=== PATIENT | female | born 1955 | race Caucasian/White ===

== ENCOUNTER → 2018-06-26 | Outpatient (CLI) | payer BC | LOC: MC.RAD 11:00 | DX: Z12.31 Encounter for screening mammogram for malignant neoplasm of breast (principal) ==

== ENCOUNTER → 2020-09-29 | Outpatient (CLI) | payer MEDICARE, BC | LOC: MC.RAD 08:34 | DX: Z12.31 Encounter for screening mammogram for malignant neoplasm of breast (principal) ==

== ENCOUNTER 2021-07-23 07:38 | Emergency (ER) | payer MEDICARE, OTHER ==
[~2021-07-23] VITALS: Ht 167.6 cm; Wt 70.5 kg
[2021-07-23 07:49] VITALS: TEMP 98.9
[2021-07-23 08:12] LABS: BASO % 0.3 % (0.0-2.0); EOS # 0.1 K/mm3 (0.0-0.7); GRAN # 6.6 K/mm3 (1.4-6.5); GRAN % 75.4 % (42.2-75.2); HEMATOCRIT 41.4 % (37.0-47.0); HEMOGLOBIN 13.8 g/dl (12.5-16.0); LYMPH # 1.2 K/mm3 (1.2-3.4); LYMPH % 13.5 % (20.0-51.0); MEAN CELL VOLUME 91 fl (80.0-100.0); MEAN CORPUSCULAR HEMOGLOBIN 30 pg (27.0-31.0); MEAN CORPUSCULAR HGB CONC 33 g/dl (33.0-37.0); MEAN PLATELET VOLUME 8.5 fl (7.4-10.4); MONO # 0.8 K/mm3 (0.1-0.6); MONO % 9.6 % (1.7-9.3); PLATELET COUNT 397 K/mm3 (130-400); RED BLOOD COUNT 4.56 M/mm3 (4.10-5.30); REDCELL DISTRIBUTION WIDTH-CV 12.3 % (11.5-14.5)
[2021-07-23 08:35] LABS: ALBUMIN 3.9 gm/dL (3.4-4.8); BILIRUBIN,TOTAL 0.7 mg/dL (0.2-1.2); CALCIUM 9.8 mg/dL (8.4-10.2); CREATININE, serum 0.81 mg/dL (0.57-1.11); POTASSIUM 3.8 mmol/L (3.5-4.5); TOTAL PROTEIN 6.9 gm/dL (6.2-8.1)
[2021-07-23 08:41] LABS: TROPONIN-I 0.015 ng/mL (0.00-0.033)
[2021-07-23 12:33] VITALS: BP 121/77; PULSE 86
== END 2021-07-23 12:07 | disposition home or self-care (01) ==
LOC: COL.ER 07:38
PROVIDERS: Emergency Medicine
DX: R07.89 Other chest pain (principal)

== ENCOUNTER → 2022-01-03 | Outpatient (CLI) | payer MEDICARE, OTHER | LOC: MC.RAD 15:11 | DX: Z12.31 Encounter for screening mammogram for malignant neoplasm of breast (principal) ==

== ENCOUNTER 2022-10-17 07:50 | Emergency (ER) | payer MEDICARE, OTHER ==
[~2022-10-17] VITALS: Ht 167.6 cm; Wt 77.3 kg
[2022-10-17 07:56] VITALS: BP 161/68; TEMP 98.1
[2022-10-17 09:12] LABS: HEMOGLOBIN 12.4 g/dl (12.5-16.0); MEAN CELL VOLUME 91 fl (80.0-100.0); MEAN CORPUSCULAR HEMOGLOBIN 31 pg (27-31); MEAN CORPUSCULAR HGB CONC 34 g/dl (33.0-37.0); MEAN PLATELET VOLUME 8.3 fl (7.4-10.4); PLATELET COUNT 373 K/mm3 (130-400); RED BLOOD COUNT 4.04 M/mm3 (4.10-5.30); REDCELL DISTRIBUTION WIDTH-CV 12.7 % (11.5-14.5)
[2022-10-17 09:15] LABS: HEMATOCRIT 36.7 % (37.0-47.0)
[2022-10-17 09:28] LABS: CALCIUM 9.3 mg/dL (8.4-10.2); CREATININE, serum 0.73 mg/dL (0.57-1.11); POTASSIUM 4.3 mmol/L (3.5-4.5)
[2022-10-17] MEDS ORDERED: ROBAXIN 50500 MG/TAB PO (09:47)
[2022-10-17 09:59] VITALS: PULSE 75
== END 2022-10-17 09:59 | disposition home or self-care (01) ==
LOC: COL.ER 07:50
PROVIDERS: Emergency Medicine
DX: M79.662 Pain in left lower leg (principal)

== ENCOUNTER 2024-02-02 15:58 | Emergency (ER) | payer MEDICARE, OTHER ==
[~2024-02-02] VITALS: Ht 167.6 cm; Wt 80.5 kg
[~2024-02-02 15:58] MED LIST: ACIPHEX20 MG PO; ASPIRIN 32325 MG/TAB PO; ASPIRIN 81M81 MG/TA2 PO; CELEBREX 200MG200 MG PO; FLONASEALLERGY NS; HAIRSKINNAILS PO; LIPITOR 40MG TA40 MG PO; LYRICA 50MG CAP50 MG PO; NATURAL E400 IU PO; PLAVIX 75MG TAB75 MG PO; ROBAXIN 50500 MG/TAB PO; TYLENOL 500MG500 MG PO; VITAMIND3 5000 PO
[2024-02-02 16:09] VITALS: TEMP 98.2
[2024-02-02 16:54] LABS: BASO % 0.4 % (0.0-2.0); EOS # 0.5 K/mm3 (0.0-0.7); EOS % 6.4 % (0.0-4.0); GRAN # 3.5 K/mm3 (1.4-6.5); GRAN % 49.4 % (42.2-75.2); HEMOGLOBIN 12.4 g/dl (12.5-16.0); LYMPH # 2.5 K/mm3 (1.2-3.4); LYMPH % 34.2 % (20.0-51.0); MEAN CELL VOLUME 91 fl (80.0-100.0); MEAN CORPUSCULAR HEMOGLOBIN 30 pg (27-31); MEAN CORPUSCULAR HGB CONC 33 g/dl (33.0-37.0); MEAN PLATELET VOLUME 8.3 fl (7.4-10.4); MONO # 0.7 K/mm3 (0.1-0.6); MONO % 9.5 % (1.7-9.3); PLATELET COUNT 426 K/mm3 (130-400); RED BLOOD COUNT 4.18 M/mm3 (4.10-5.30); REDCELL DISTRIBUTION WIDTH-CV 12.6 % (11.5-14.5)
[2024-02-02 17:16] LABS: BILIRUBIN,TOTAL 0.2 mg/dL (0.2-1.2); CALCIUM 10.2 mg/dL (8.4-10.2); CREATININE, serum 0.75 mg/dL (0.57-1.11); POTASSIUM 3.4 mEq/L (3.5-4.5); TOTAL PROTEIN 7.4 g/dl (6.2-8.1)
[2024-02-02] MEDS ORDERED: Acetaminophen 325 MG TAB PO ONE (19:00)
[2024-02-02 19:15] VITALS: BP 121/74; PULSE 80
== END 2024-02-02 19:15 | disposition home or self-care (01) ==
LOC: COL.ER 15:58
PROVIDERS: Family Medicine
DX: J93.83 Other pneumothorax (principal); Z91.040 Latex allergy status

== ENCOUNTER → 2024-06-10 | Outpatient (CLI) | payer MEDICARE | LOC: MC.RAD 14:40 | DX: Z12.31 Encounter for screening mammogram for malignant neoplasm of breast (principal) ==